=== PATIENT | female | born 1990 | race Caucasian/White ===

== ENCOUNTER 2019-09-02 14:49 | Outpatient (RCR) | payer BC, SELFPAY ==
--- NOTE | 2019-09-02 17:49 | PTOPEVAL ---
Thank you for referring this patient to [facility]. Please review, sign, date and return this plan of care DIMA. I agree with and certify that the following plan of care is medically necessary. Referring Physician Date Admitting Provider: Attending Provider: PHYSICIAN NOT ON STAFF Referring Provider: *PT Outpatient Evaluation Start: 09/02/19 17:28 Freq: Status: Active Protocol: Document 09/02/19 14:00 KEEGAN (Rec: 09/02/19 17:40 [email or web address] [id number]) Therapy Assessment Status Assessment Status Assessment Status Evaluation Outpatient Past Medical History Musculoskeletal History Hx Spinal Surgery Yes Evaluation Information Problem Diagnosis low back pain Onset 08/20/19 Subjective Information Pt. reports she has been Query Text:As Reported By Patient/ dealing with back and left leg Family pain since june. She reports that pain had started to increase after reaching to the floor for a small dog bone on 08/20/19. She reports that she went to her doctor and received a steroid back which helped to ease her pain. 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 She describes pain in the low back and into the left buttock and lateral thigh and is constant. She reports that she does not participate in any formal exercise at this time. She denies any numbness or tingling. she reports that her goal for therpay is to decrease her back and leg pain. Prior Level of Function Activity Level (Last 3 Months) Hand Dominance Right Activity of Daily Living Ability Independent Community Mobility Independent Stairs Ability Independent Functional Cognition (Planning, Shopping Independent , Taking Medications) Cooking Yes Cleaning Yes Laundry Yes Shopping Yes Driving Yes Comments Additional Prior Level of Function Pt. sits majority of the day Comments at work. Pain Assessment Pain Scale Pain Scale Used
== END 2019-09-19 23:59 | disposition home or self-care (01) ==
LOC: CHSPT 14:49
DX: M54.10 Radiculopathy, site unspecified (principal)
CPT/HCPCS: 97014; 97110; 97161; G0283

== ENCOUNTER 2022-05-14 08:04 | Emergency (ER) | payer BC, SELFPAY ==
[2022-05-14 08:11] VITALS: BP 140/88; PULSE 104; RESP 16; TEMP 37.2; O2SAT 100
--- NOTE | 2022-05-14 08:24 | ED.URI ---
HPI - URI/Sore Throat General Chief Complaint: Upper Respiratory Infection Stated Complaint: fever, sore throat, cough Time Seen by Provider: 05/14/22 08:15 History of Present Illness HPI Narrative: 31 y/o female presented for complaint of sore throat. She endorses fever 100.4, right ear pain, mild cough, and fatigue since last night. 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 She took Tylenol this morning for symptoms drink hot tea. She denies shortness of breath, wheezing, nausea, vomiting or diarrhea. Related Data Home Medications Medication Instructions Recorded Confirmed norgestimate 0.25 mg-ethinyl 1 tablet PO DAILY 08/02/19 05/14/22 estradiol 35 mcg tablet (Sprintec (28)) omeprazole 40 mg capsule,delayed 40 mg PO DAILY 05/14/22 05/14/22 release Allergies Allergy/AdvReac Type Severity Reaction Status Date / Time No Known Allergies Allergy Verified 05/14/22 08:16 Review of Systems Review of Systems: CONSTITUTIONAL: reports body aches, fever, chills, or sweats. EYES: Denies visual changes, redness, or discharge. ENT: Per HPI CARDIOVASCULAR: Denies chest pain, palpitations, or edema. RESPIRATORY: Denies dyspnea. GASTROINTESTINAL: Denies abdominal pain, nausea, vomiting SKIN: Denies rash, itching, or wounds. MUSCULOSKELETAL: Denies back pain, joint pain, or myalgia. NEUROLOGIC: Denies headache Exam Narrative: GENERAL: Ill-appearing, nontoxic EYES: conjunctivae clear ENT: Mucous membranes moist. TMs pearly torres with normal light reflex bilaterally; no tragal tenderness. Oropharynx erythematous without lesions. Right tonsil enlarged 2+ without exudate. No drooling, no hoarseness, no trismus, uvula midline. No tripod positioning, hot potato voice, or soft palate swelling. NECK: Supple. No lymphadenopathy CHEST: Clear to auscultation, breath sounds equal. No respiratory distress, speaks in full sentences. HEART: Regular rate and rhythm. No murmur heard. SKIN: Warm, dry, no rash. NEURO: Alert and oriented x3. Course Course Emergency Course: Patient is aware of diagnosis, understands and agrees to treatment plan. Anticipatory guidance given. Patient agrees to follow-up as directed and is aware of reasons to seek care at the emergency department. Portions of this record may have been created with voice recognition software Level of Care: Express Care Visit Vital Signs Vital signs: Vital Signs Temperature 98.9 F 05/14/22 08:11 Pulse Rate 104 H 05/14/22 08:11 Respiratory Rate 16 05/14/22 08:11 Blood Pressure 140/88 05/14/22 08:11 Pulse Oximetry 100 05/14/22 08:11 Temperature 98.9 F 05/14/22 08:11 Pulse Rate 104 H 05/14/22 08:11 Respiratory Rate 16 05/14/22 08:11 Blood Pressure 140/88 05/14/22 08:11 Pulse Oximetry 100 05/14/22 08:11 Oxygen Delivery Room Air 05/14/22 08:18 MDM - URI/Sore Throat MDM Narrative Medical decision making narrative: negative covid and strep result reviewed with pt. Advise supportive treatments. Patient is appropriate for outpatient treatment and follow-up. Differential Diagnosis Differential diagnosis: Likely upper respiratory infection, viral infection and pharyngitis Lab Data Labs: Lab Results 05/14/22 Range/Units 08:45 POC SARS CoV-2 Ag Negative (Negative) Strep Screen Presumptive Negative *(Reference Range: Negative)* Discharge Plan Discharge Clinical Impression: Upper respiratory infection Qualifiers: URI type: unspecified URI Qualified Code(s): J06.9 - Acute upper respiratory infection, unspecified Patient Disposition: Home, Self-Care Condition: Stable Instructions: Antibiotic Form, Upper Respiratory Infection (ED) Additional Instructions: Covid negative. You can retest in 1-2 days at home. Rapid strep swab was negative today You will be notified in a few days if the culture comes back po
== END 2022-05-14 09:05 | disposition home or self-care (01) ==
PROVIDERS: Emergency Provider Nurse Practitioner Family; PCP Family Medicine
DX: J06.9 Acute upper respiratory infection, unspecified (principal); Z20.822 Contact with and (suspected) exposure to COVID-19
CPT/HCPCS: 87081; 87426; 87880; 99213; C9803; G0463